=== PATIENT | female | born 1970 | race Caucasian/White ===

== ENCOUNTER 2021-05-19 18:37 | Emergency (ER) | payer OTHER, SELFPAY ==
[2021-05-19 18:52] VITALS: BP 138/54; PULSE 65; RESP 16; TEMP 36.3; O2SAT 96
--- NOTE | 2021-05-19 19:06 | ED.FEMALEGU ---
HPI - Female Genitourinary General Chief complaint: Urogenital-Female Stated complaint: UTI Source: patient and RN notes reviewed Limitations: no limitations History of Present Illness HPI Narrative: The patient, a non-smoker/nondrinker,, presents with a shorter, afternoon history of urinary frequency, urgency and dysuria- like prior UTI several months ago. No blood, low back or abdominal pain, vaginal discharge [she is s/p MELA]. Symptoms are mild, most noticeable with micturition Related Data Home Medications Medication Instructions Recorded Confirmed albuterol sulfate INHALATION 05/19/21 duloxetine mg PO 05/19/21 hydrocodone-acetaminophen tablet 05/19/21 omeprazole 05/19/21 pregabalin [Lyrica] 100 mg PO HS 05/19/21 05/19/21 propranolol 05/19/21 sumatriptan succinate mg PO 05/19/21 Allergies Allergy/AdvReac Type Severity Reaction Status Date / Time Iodine and Iodide Containing Allergy Other Verified 05/19/21 18:58 Produc Review of Systems Review of Systems: Narrative: General/Constitutional: No weight loss,fever Eyes: N0: Redness,discharge Ears/Nose/Throat: No: Epistaxis,ear discharge Respiratory: Denies: Hemoptysis Gastrointestinal: No Vomiting, Bleeding-rectal Skin: No Lumps, eruption Neurologic: No Focal Weakness,Sz Hematologic: Denies: Petechiae/Purpura Psychiatric: No: Suicida ideationl All Other Systems: Reviewed and Negative [facility] Comments At time of signature, agree with nursing past medical, surgical, social and family history. There is no relevant family history pertinent to the presenting complaint Exam Narrative: Exam Narrative: General Appearance: Well appearing, No distress EYE: PERRLA, Conjunctiva clear Ears: External ear normal Nose: Normal nose Mouth/Throat: Normal appearing, Normal lips Neck: Supple Respiratory: Airway patent, No respiratory distress Cardiovascular: RRR Abdomen: Soft, Non-tender, Musculoskeletal: Full ROM Skin: Warm, Dry Neurological: A&O x3, CN II-X intact Psychiatric: Normal mood, Normal affect Course Vital Signs Vital signs: Vital Signs Temperature 97.4 F L 05/19/21 18:52 Pulse Rate 65 05/19/21 18:52 Respiratory Rate 16 05/19/21 18:52 Blood Pressure 138/54 L 05/19/21 18:52 Pulse Oximetry 96 05/19/21 18:52 Temperature 97.4 F L 05/19/21 18:52 Pulse Rate 65 05/19/21 18:52 Respiratory Rate 16 05/19/21 18:52 Blood Pressure 138/54 L 05/19/21 18:52 Pulse Oximetry 96 05/19/21 18:52 MDM - Female Genitourinary Lab Data Labs: Urine Glucose Negative Reference Range: Negative Urine Glucose Negative Reference Range: Negative Urine Bilirubin Negative Reference Range: Negative Urine Bilirubin Negative Reference Range: Negative Urine Ketone Negative Reference Range: Negative Urine Ketone Negative Reference Range: Negative Urine Specific [place] 1.025 Reference Range:1.001-1.035 Urine Specific [place] 1.025 Reference Range:1.001-1.035 Urine Blood Negative Reference Range: Negative * * Urine pH 7.5 Reference Range: 5.0-9.0 Urine pH 7.5 Reference Range: 5.0-9.0 Urine Protein 1+
== END 2021-05-19 19:09 | disposition home or self-care (01) ==
PROVIDERS: Emergency Provider Emergency Medicine
DX: N30.00 Acute cystitis without hematuria (principal); I10 Essential (primary) hypertension; R00.2 Palpitations; M79.7 Fibromyalgia
CPT/HCPCS: 81003; 87086; 87088; 99203; G0463